=== PATIENT | male | born 2000 | race Caucasian/White ===

== ENCOUNTER 2022-01-06 04:59 | Emergency (ER) | payer OTHER ==
[~2022-01-06] VITALS: Ht 175.3 cm; Wt 81.6 kg
[2022-01-06] MEDS ORDERED: ACETAMINOPHEN650 M2 (05:37)
== END 2022-01-06 17:31 | disposition home or self-care (01) ==
LOC: EMR PED 04:59 → ER 05:42 → EMR PED 05:42
DX: F10.929 Alcohol use, unspecified with intoxication, unspecified (principal); F19.929 Other psychoactive substance use, unspecified with intoxication, unspecified; T14.90XA Injury, unspecified, initial encounter; X58.XXXA Exposure to other specified factors, initial encounter; Y93.9 Activity, unspecified; Y92.9 Unspecified place or not applicable; Y99.9 Unspecified external cause status; I10 Essential (primary) hypertension

== ENCOUNTER 2022-01-18 12:02 | Emergency (ER) | payer OTHER ==
[~2022-01-18] VITALS: Ht 175.3 cm; Wt 68.0 kg
[~2022-01-18 12:02] MED LIST: ACETAMINOPHEN650 M2
== END 2022-01-18 13:31 | disposition home or self-care (01) ==
LOC: EMR PED 12:02
DX: S61.422A Laceration with foreign body of left hand, initial encounter (principal); W27.8XXA Contact with other nonpowered hand tool, initial encounter; Y93.9 Activity, unspecified; Y92.9 Unspecified place or not applicable